=== PATIENT | male | born 2005 | race Caucasian/White ===

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

== ENCOUNTER 2024-12-24 21:18 | Emergency (ER) | payer BC, OTHER ==
[~2024-12-24] VITALS: Ht 177.8 cm; Wt 104.3 kg
[2024-12-24 21:32] VITALS: BP 152/80
== END 2024-12-24 22:28 | disposition home or self-care (01) ==
LOC: ER 21:18
DX: S61.210A Laceration without foreign body of right index finger without damage to nail, initial encounter (principal); Z23 Encounter for immunization; W26.0XXA Contact with knife, initial encounter; Z79.899 Other long term (current) drug therapy; Z88.1 Allergy status to other antibiotic agents; J45.909 Unspecified asthma, uncomplicated
CPT/HCPCS: 12001; 90471; 90715; 99282-25